=== PATIENT | male | born 1990 | race Native Hawaiian/Other Pacific Islander ===

== ENCOUNTER 2017-07-09 08:18 | Emergency (ER) | payer MEDICAID ==
[~2017-07-09] VITALS: Ht 167.6 cm; Wt 61.2 kg
[2017-07-09 08:20] VITALS: BP 119/78
== END 2017-07-09 09:16 | disposition home or self-care (01) ==
LOC: ER 08:26
DX: J02.9 Acute pharyngitis, unspecified (principal); Z90.89 Acquired absence of other organs
CPT/HCPCS: 99281; A4606; Z7610; Z7502

== ENCOUNTER 2019-12-21 05:24 | Inpatient (IN) | payer BC, MEDICAID ==
[2019-12-21] VITALS (8 sets, daily range): BP systolic 95–121; BP diastolic 59–70
[~2019-12-21] VITALS: Ht 165.1 cm; Wt 63.5 kg
--- NOTE | 2019-12-21 05:31 | NUR ---
PT AAOX4. AMBULATORY WITH STEADY GAIT. BIBS C/O RLQ ABD PAIN ,+N/V X 2 HRS. PALCED ON MONITOR AND PULSE OX. VSS. AWAITING MD FOR EVAL AND ORDERS. VSS. NO ACUTE DISTRESS NOTED.
[2019-12-21 05:59] LABS: BASOPHILS % (AUTO) 0.2 % (0.0-2.0); EOSINOPHILS % (AUTO) 0.4 % (0.0-6.0); HEMATOCRIT 43 % (39-51); HEMOGLOBIN 14.2 g/dL (13.5-17.5); LYMPHOCYTES # (AUTO) 1.1 /CMM (0.8-4.8); LYMPHOCYTES % (AUTO) 8.6 % (20.0-44.0); MEAN CORPUSCULAR HGB CONC 33 g/dl (31.0-36.0); MEAN CORPUSCULAR VOLUME 82 fL (80-96); MONOCYTES # (AUTO) 0.6 /CMM (0.1-1.30); NEUTROPHILS # (AUTO) 10.7 /CMM (1.8-8.9); NEUTROPHILS % (AUTO) 85.8 % (43.0-81.0); PLATELET COUNT (AUTO) 178 /CMM (150-450); WHITE BLOOD COUNT (AUTO) 12.5 K/uL (4.3-11.0)
[2019-12-21] MEDS ORDERED: IV NS 0.9% 1,000 ML BAG IV ONE (06:00)
[2019-12-21] MEDS ORDERED: MORPHINE SULFATE INJ 2 MG/ML DISP.SYRIN IV ONE (06:00)
[2019-12-21] MEDS ORDERED: ONDANSETRON HCL/PF 4 MG/2 ML VIAL IVP ONE (06:00)
--- NOTE | 2019-12-21 06:00 | NUR ---
NS GIVEN THROUGH RAC 20G PIV LINE. END TIME: 0700
[2019-12-21 06:06] LABS: CALCIUM, SERUM 8.8 mg/dL (8.5-10.1); CREATININE 1.2 mg/dL (0.6-1.3); POTASSIUM 3.8 mmol/L (3.5-5.1)
[2019-12-21] MEDS ORDERED: MORPHINE SULFATE INJ 4 MG/ML DISP.SYRIN ONE (06:07)
[2019-12-21] MEDS ORDERED: ONDANSETRON HCL/PF 4 MG/2 ML VIAL ONE (06:07)
--- NOTE | 2019-12-21 06:18 | NUR ---
MD SENIOR RESEARCH SCIENTIST AT BEDSIDE FOR LABS.
--- NOTE | 2019-12-21 06:18 | NUR ---
URINE COLLECTED AND SENT TO LAB
--- NOTE | 2019-12-21 06:20 | NUR ---
BROUGHT TO CT
[2019-12-21 06:28] LABS: APPEARANCE,URINE Clear (CLEAR); BILIRUBIN,URINE Negative (NEGATIVE); BLOOD, URINE Negative Ery/uL (NEGATIVE); COLOR,URINE Yellow (YELLOW); KETONES,URINE Negative (NEGATIVE); LEUKOCYTE ESTERASE ,URINE Negative (NEGATIVE); NITRITE, URINE Negative (NEGATIVE); PH,URINE 7.5 (5.0-8.0); PROTEIN,URINE Negative (NEGATIVE); UGLUCOSE Negative (NEGATIVE)
--- NOTE | 2019-12-21 06:47 | NUR ---
BACK FROM CT
--- NOTE | 2019-12-21 06:57 | NUR ---
DR. FUNK SPEAKING WITH DR. RHODES
[2019-12-21] MEDS ORDERED: PIPERACILLIN /TAZOBACTAM 3.375 G in IV D5W 50 ML IV ONE ×2 (07:00→14:00)
--- NOTE | 2019-12-21 07:03 | NUR ---
CALLED PHARMACY FOR ZOSYN 3.3
[2019-12-21 07:06] LABS: ALBUMIN 4.2 g/dL (3.4-5.0); BILIRUBIN,DIRECT 0.1 mg/dL (0.0-0.2); BILIRUBIN,TOTAL 0.7 mg/dL (0.2-1.0); TOTAL PROTEIN, SERUM 7.9 g/dL (6.4-8.2)
--- NOTE | 2019-12-21 07:09 | NUR ---
RN LIAISON AT BEDSIDE FOR BLOOD CULTURES
--- NOTE | 2019-12-21 07:20 | NUR ---
DR CISNEROS CALLED AND TX TO DR FUNK
[2019-12-21] MEDS ORDERED: FLUT16SP16 (07:47)
[2019-12-21] MEDS ORDERED: LORA10TA7 PO (07:47)
--- NOTE | 2019-12-21 07:48 | NUR ---
ROOM GIVEN 206
--- NOTE | 2019-12-21 07:53 | NUR ---
report given to Lucia BLOOD for jaye
[2019-12-21] MEDS ORDERED: ACETAMINOPHEN 325 MG TABLET PO PRN (08:30)
[2019-12-21] MEDS ORDERED: HYDROCODONE/APAP 5/325MG 1 EACH TABLET PO PRN (08:30)
[2019-12-21] MEDS ORDERED: ONDANSETRON HCL/PF 4 MG/2 ML VIAL IV PRN ×2 (08:30→12:22)
[2019-12-21] MEDS ORDERED: HYDROMORPHONE INJ 0.5 MG/0.5 ML SYRINGE IV PRN (08:30)
[2019-12-21] MEDS ORDERED: ZOLPIDEM TARTRATE 5 MG TABLET PO PRN (08:30)
--- NOTE | 2019-12-21 08:56 | NUR ---
wheeled patient via gurney accompanied by EMT in no distress. RN at bedside to assume care.
--- NOTE | 2019-12-21 09:00 | NUR ---
MS/RN RECEIVED PATIENT TRANSFERRED VIA GURNEY TO ROOM 312-2 AT 0900HRS. NO INJURIES WERE SUSTAINED DURING TRANSFER. PATIENT IS ALERT AND ORIENTED X 4, VITAL SIGNS ARE WITHIN NORMAL LIMITS. NO SIGNS OR SOB OR DISTRESS NOTED AT THIS TIME. PATIENT STATES NOT PAIN AT THE MOMENT IN SEMI FOWLERS POSITION. SAFETY MEASURES ARE IN PLACE, BED LOCKED AND SET IN LOW POSITION SIDE RAILS UP X 2, CALL LIGHT WITHIN REACH. WILL CONTINUE TO MONITOR PATIENT.
[2019-12-21] MEDS ORDERED: LIDOCAINE HCL/MPF 1% 30 ML VIAL IJ ONE (09:52)
[2019-12-21] MEDS ORDERED: LIDOCAINE 0.5%-EPI 1:200,000 50 ML VIAL ONE ×2 (09:52→10:14)
[2019-12-21] MEDS ORDERED: LIDOCAINE 1% INJ 50 ML MDV IJ ONE (10:16)
[2019-12-21] MEDS ORDERED: BUPIVACAINE MPF 0.5% W/EPI INJ 30 ML VIAL ONE (10:16)
[2019-12-21] MEDS ORDERED: BACITRACIN ZINC OINT PACKET 1 EA PACKET TP ONE (10:53)
[2019-12-21] MEDS ORDERED: FENTANYL PF 100MCG/2ML AMPUL ONE (11:34)
[2019-12-21] MEDS ORDERED: PIPERACILLIN /TAZOBACTAM 3.375 G in IV D5W 50 ML IV SCH (12:00)
[2019-12-21] MEDS ORDERED: HYDROCODONE/APAP 10/325MG 1 EA TABLET PO PRN (12:30)
[2019-12-21] MEDS ORDERED: HYDROMORPHONE 1 MG/1 ML DISP.SYRIN IV PRN (12:30)
[2019-12-21] MEDS ORDERED: PIPERACILLIN /TAZOBACTAM 3.375 G in IV D5W 100 ML IV SCH (14:00)
[2019-12-21] MEDS: Potassium Chloride 10 MEQ in IV NS 0.9% 1,000 ML IV PRN (14:24)
--- NOTE | 2019-12-21 18:21 | NUR ---
MS/RN CLOSING NOTES PATIENT IS LAYING IN BED RESTING, ALERT AND ORIENTED X 4, VITAL SIGNS ARE WITHIN NORMAL LIMITS. NO SIGNS OF SOB OR DISTRESS NOTED AT THIS TIME. PATIENT STATES NO PAIN AT THE MOMENT IN SEMI FOWLERS POSITION. PATIENT HAS IV ACCESS ON RIGHT UPPER ARM INTACT RUNNING NS WITH POTASSIUM AT 100 ML/HR. SAFETY MEASURES ARE IN PLACE, BED LOCKED AND SET IN LOW POSITION SIDE RAILS UP X 2, CALL LIGHT WITHIN REACH. ALL NEEDS HAVE BEEN MET. WILL ENDORSE CARE TO CRYPTOLOGIC SUPERVISOR.
--- NOTE | 2019-12-21 20:00 | NUR ---
bottom buffer initial notes pt seen in bed awake and alert with IVF at 100ml/hr infusing at this time. denies any discomfort right now but pt stated he feels like he's bloated. Encouraged him to ambulate as he can to ease the bloated pt understood well and stated that is also "the advice of my girlfriend. dressing dry and intact. kept him comfortable at all times. will continue monitoring. place call light at reach.
--- NOTE | 2019-12-21 21:10 | NUR ---
ms thelma notes pain mgt. c/o abdominal pain , norco tablet given as ordered. no n/v noted. Educate regarding possible side effect and pt understood well. will continue monitoring,
--- NOTE | 2019-12-22 | NUR ---
continuous improvement manager notes pt seen resting with eyes closed after pain meds given earlier. IVF still infusing. kept him comfortable at all times. will continue monitoring.
[2019-12-22 06:10] LABS: BASOPHILS % (AUTO) 0.1 % (0.0-2.0); HEMATOCRIT 41 % (39-51); HEMOGLOBIN 13.3 g/dL (13.5-17.5); LYMPHOCYTES # (AUTO) 1.8 /CMM (0.8-4.8); MEAN CORPUSCULAR HGB CONC 32 g/dl (31.0-36.0); MEAN CORPUSCULAR VOLUME 84 fL (80-96); MONOCYTES # (AUTO) 0.7 /CMM (0.1-1.30); MONOCYTES % (AUTO) 5.9 % (2.0-12.0); NEUTROPHILS # (AUTO) 8.6 /CMM (1.8-8.9); PLATELET COUNT (AUTO) 182 /CMM (150-450); RED BLOOD CELL COUNT(AUTO) 4.92 MIL/uL (4.5-6.0); WHITE BLOOD COUNT (AUTO) 11.1 K/uL (4.3-11.0)
[2019-12-22 06:19] LABS: CALCIUM, SERUM 8.8 mg/dL (8.5-10.1); CREATININE 1.3 mg/dL (0.6-1.3); POTASSIUM 3.7 mmol/L (3.5-5.1)
--- NOTE | 2019-12-22 07:03 | NUR ---
ms leather scrubber closing notes pt resting at this time, after walked a little bit. apin subside after norco given. but pt still feeling having gas pain. encourage him to walk as tolerated to ease his gas pain. IVF still infusing, dressing x3 intact and dry. kept him warm and comfortable at all times. will endorse to am nurse for continuity of care.
--- NOTE | 2019-12-22 07:28 | NUR ---
MS RN OPENING NOTES PATIENT RECEIVED AWAKE IN BED IN NO ACUTE SIGNS OF DISTRESS. A/O X 4. ABLE TO MAKE NEEDS KNOWN, VERBALIZED THAT HE HAS PAIN ON HIS RUQ BUT TOLERATIVE AND HASN'T PASS GAS YET, ENCOURAGED PT TO AMBULATE TOLERATED AND VERBALIZED UNDERSTANDING. DRESSING ON SURGICAL SITES INTACT, CLEAN AND DRY. ON ROOM AIR, BREATHING EVEN AND UNLABORED. IV ACCESS ON RIGHT UPPER ARM INTACT AND PATENT, IVF RUNNING ORDERED, NO S/S OF INFILTRATIONS NOTED. SAFETY MEASURES ARE IN PLACE: BED LOCKED AND SET IN LOW POSITION SIDE RAILS UP X 2, CALL LIGHT WITHIN REACH. WILL CONTINUE TO MONITOR PT ACCORDINGLY.
[2019-12-22 07:30] VITALS: BP 107/62
[2019-12-22] MEDS ORDERED: ACET-907 PO (08:50)
[2019-12-22] MEDS ORDERED: AMOX-427 PO (08:50)
[2019-12-22] MEDS: METOCLOPRAMIDE HCL 10 MG/2 ML VIAL IV SCH ×2 (09:11→15:45)
[2019-12-22] MEDS: Potassium Chloride 10 MEQ in IV NS 0.9% 1,000 ML IV PRN (09:12)
[2019-12-22 16:00] VITALS: BP 105/66
--- NOTE | 2019-12-22 18:11 | NUR ---
RN DISCHARGED NOTES PT DISCHARGED HOME IN STABLE CONDITION. A/O X 4, SAME ABLE TO MAKE NEEDS KNOWN. V/S TAKEN AND STABLE. ALL BELONGINGS CHECKED, COUNTED AND SIGNED FORM. DRESSINGS TO SURGICAL SITES ON ABDOMEN, C/D/I. IV ACCESS ON TORREY REMOVED WITH NO BLEEDING NOTED, DRY DRESSING APPLIED TO SITE. NAME ARMBAND REMOVED. HEALTH TEACHINGS GIVEN TO PT AND VERBALIZED UNDERSTANDING. PT LEFT UNIT VIA WHEELCHAIR ACCOMPANIED BY CAMRYN HIDALGO TO LOBBY AT 1800. SISTER DAVID DUPONT WAITING ON THE LOBBY TO TAKE PT HOME. MD AND CHARGE NURSE AWARE OF DISCHARGE.
== END 2019-12-22 18:30 | disposition home or self-care (01) | DRG 343 ==
LOC: ER 05:24 → MEDSG2 08:30 → MED 09:23
PROVIDERS: ADMIT Internal Medicine; ATTEND Internal Medicine
PROC: 0DTJ4ZZ Resection of Appendix, Percutaneous Endoscopic Approach (ICD-10-PCS; principal; 2019-12-21)
DX: K35.80 Unspecified acute appendicitis (principal); K21.9 Gastro-esophageal reflux disease without esophagitis; D72.829 Elevated white blood cell count, unspecified; J30.2 Other seasonal allergic rhinitis
CPT/HCPCS: 36415; 71045-TC; 80048-TC; 80076-TC; 81000-TC; 83605-TC; 83735-TC; 85025-TC; 85730-TC; 87040-TC; 87081-TC; 88304-TC; G0378; J1100; J1885; J2270; J2405; J2543; J2704; J2710; J2765; J3010; J3480; J3490; J7030; J7060